=== PATIENT | female | born 1965 | race Two or more races ===

== ENCOUNTER 2021-05-11 12:59 | Emergency (ER) | payer OTHER ==
[~2021-05-11] VITALS: Ht 162.6 cm; Wt 74.4 kg
[2021-05-11 15:07] VITALS: BP 155/80
[2021-05-11] MEDS ORDERED: cefTRIAXone SOD 1,000 MG VL IM ONE (15:15)
[2021-05-11] MEDS ORDERED: LIDOCAINE 1% HCL (LOCAL ANESTH.) INJ 20ML MDV ONE (15:18)
[2021-05-11] MEDS ORDERED: IBUP600T27 PO (15:25)
[2021-05-11] MEDS ORDERED: AMOX-277 PO (15:25)
[2021-05-11] MEDS ORDERED: LIDOCAINE 1% HCL (LOCAL ANESTH.) INJ 20ML MDV IJ ONE (15:30)
== END 2021-05-11 15:36 | disposition home or self-care (01) ==
LOC: ER 12:59
DX: J03.90 Acute tonsillitis, unspecified (principal); H66.92 Otitis media, unspecified, left ear; I10 Essential (primary) hypertension; Z20.822 Contact with and (suspected) exposure to COVID-19
CPT/HCPCS: 36415; 71046; 87426; 93005; 96372; 99285; J0696; J2001

== ENCOUNTER 2021-10-21 18:49 | Emergency (ER) | payer MEDICAID, OTHER ==
[~2021-10-21] VITALS: Ht 157.5 cm; Wt 72.6 kg
[~2021-10-21 18:49] MED LIST: AMOX-277 PO; IBUP600T27 PO
[2021-10-21 19:01] VITALS: BP 137/75
[2021-10-21] MEDS ORDERED: traMADol HCL 50 MG TAB PO ONE (20:00)
[2021-10-22] MEDS: ACETAMINOPHEN 325 MG TAB PO ONE (00:54)
== END 2021-10-22 00:53 | disposition left against medical advice (07) ==
LOC: ER 18:49
DX: R51.9 Headache, unspecified (principal); T88.1XXA Other complications following immunization, not elsewhere classified, initial encounter; I10 Essential (primary) hypertension
CPT/HCPCS: 70450

== ENCOUNTER 2022-07-16 15:58 | Emergency (ER) | payer OTHER ==
[~2022-07-16] VITALS: Ht 162.6 cm; Wt 74.3 kg
[2022-07-16] MEDS ORDERED: MONT-8 PO (18:46)
[2022-07-16] MEDS ORDERED: BENZ100C19 PO (18:46)
[2022-07-16] MEDS ORDERED: ALBU108A5 IN (18:46)
[2022-07-16 18:58] VITALS: BP 123/77
== END 2022-07-16 19:10 | disposition home or self-care (01) ==
LOC: ER 15:58
DX: J06.9 Acute upper respiratory infection, unspecified (principal); J02.9 Acute pharyngitis, unspecified; R51.9 Headache, unspecified; I10 Essential (primary) hypertension; Z20.822 Contact with and (suspected) exposure to COVID-19
CPT/HCPCS: 36415; 71045; 87426; 87804

== ENCOUNTER 2022-12-27 21:39 | Emergency (ER) | payer OTHER ==
[~2022-12-27] VITALS: Ht 162.6 cm; Wt 69.4 kg
[~2022-12-27 21:39] MED LIST changes: +ALBU108A5 IN; -AMOX-277 PO; +AMOX875T4 PO; +AUG875T PO; +BENZ100C19 PO; +IBUP-1454 PO; +IBUP-1456 PO; -IBUP600T27 PO; +MONT-8 PO; +PRED20TA2 PO
[2022-12-27 22:30] LABS: Albumin 3.5 g/dL (3.4-5.0); Calcium 8.6 mg/dL (8.5-10.1); Magnesium 2.6 mg/dL (1.6-2.6); Potassium 3.6 mmol/L (3.5-5.1)
[2022-12-27 22:34] LABS: BUN/Creatinine Ratio 16.4 (10.0-20.0); Bilirubin, Total 0.3 mg/dL (0.2-1.0); Total Protein 7.6 g/dL (6.4-8.2)
[2022-12-27 22:44] LABS: Urine Bacteria FEW /hpf (None Seen); Urine Blood 2+ /uL (Negative); Urine Budding Yeast OCCASIONAL /hpf (None Seen); Urine Mucus FEW (None Seen); Urine Specific Gravity 1.014 (1.001-1.035); Urine WBC 4 /hpf (0 - 5)
[2022-12-27 22:49] LABS: Basophils # (auto) 0 10 ^3/uL (0-0.2); Basophils % (auto) 0.6 % (0.0-2.0); Eosinophils # (auto) 0.2 10 ^3/uL (0-0.8); Eosinophils % (auto) 2.6 % (0.0-7.0); Hematocrit 39.9 % (36.0-46.0); Hemoglobin 13.3 g/dL (12.2-16.2); Lymphocytes # (auto) 3.5 10 ^3/uL (0.4-5.4); Lymphocytes % (auto) 53.2 % (10.0-50.0); Mean Corpuscular Hemoglobin 29.7 pg (28.0-32.0); Mean Corpuscular Hgb Conc. 33.3 g/dL (32.0-36.0); Mean Corpuscular Volume 89.3 fL (80.0-100.0); Monocytes # (auto) 0.3 10 ^3/uL (0-1.3); Monocytes % (auto) 4.9 % (0.0-12.0); Neutrophils # (auto) 2.5 10 ^3/uL (1.6-8.6); Neutrophils % (auto) 38.7 % (37.0-80.0); Nucleated Red Blood Cells % 0.1 %; Red Blood Cells 4.46 10^6/uL (4.0-5.20); Red Cell Distribution Width 13.8 % (11.8-14.3); White Blood Cell 6.6 10^3/uL (4.4-10.8)
[2022-12-28 02:03] VITALS: BP 154/83; PULSE 52; RESP 16; TEMP 97.8; O2SAT 98
[2022-12-28] MEDS ORDERED: HYDR-3682 PO (02:25)
== END 2022-12-28 04:20 | disposition home or self-care (01) ==
LOC: ER 21:39
DX: R07.89 Other chest pain (principal); I10 Essential (primary) hypertension; Z79.899 Other long term (current) drug therapy
CPT/HCPCS: 36415; 71045; 80053; 81001; 83735; 83880; 84484; 85025; 85379; 93005